=== PATIENT | male | born 1940 | race Caucasian/White ===

== ENCOUNTER 2019-08-13 07:06 | Outpatient (CLI) | payer MEDICARE, OTHER | END 2019-08-13 07:07 | disposition short-term general hospital (02) | LOC: EMS 07:06 | PROVIDERS: ATTEND Surgery | DX: R42 Dizziness and giddiness (principal); R11.2 Nausea with vomiting, unspecified; R61 Generalized hyperhidrosis | CPT/HCPCS: A0425; A0429 ==

== ENCOUNTER 2021-03-13 22:39 | Outpatient (CLI) | payer MEDICARE, OTHER | END 2021-03-13 22:40 | disposition short-term general hospital (02) | LOC: EMS 22:39 | DX: R11.0 Nausea (principal); R61 Generalized hyperhidrosis; Z86.16 Personal history of COVID-19 | CPT/HCPCS: A0425; A0427 ==

== ENCOUNTER 2022-05-25 22:20 | Outpatient (CLI) | payer MEDICARE, OTHER | END 2022-05-25 23:59 | disposition EMS.NT | LOC: EMS 22:20 | DX: R55 Syncope and collapse (principal) ==

== ENCOUNTER 2022-06-16 10:18 | Outpatient (CLI) | payer MEDICARE, OTHER ==
--- NOTE | 2022-06-16 10:11 | SLEEP CARE CONSULTATION ---
Information from patient questionnaire entered by Elisa Pierre. I have reviewed and concur with the information entered by Elisa Pierre. This document represents the service I personally performed and the decisions made by me, Love Haji ARNP. History of Present Illness Service Date and Time: 06/16/2022 0920 Reason for Visit: New patient, Previously diagnosed sleep apnea, sleep apnea on CPAP therapy Chief Complaint: reports: Other (TRANSFER ) Date of Onset: 20+YRS Usual bedtime: 11PM Time it takes to fall asleep: MINS Snores at night: Yes Observed to quit breathing while asleep: Yes Sleeps alone due to snoring: No Number of times waking at night: 2-3 Reasons for waking at night: reports: Bathroom Toss, Turn, or Twitch while sleeping: No Recalls having dreams: Yes Usually gets out of bed at: 0700 Feels refreshed in the morning: Yes Morning headache: No Sleepy or fatigued during the day: Yes Ever fallen asleep while driving: No Takes day naps: Yes Dreams during day naps: No Additional HPI information: BRITT MAST was previously diagnosed to have unknown, AHI unknown, sleep apnea- hypopnea syndrome and comes in today to establish care for CPAP therapy. - Parasomnia Symptoms Ever been unable to move upon waking from sleep: No Walks in sleep: No Talks in sleep: No Ever acted out dreams in sleep: No Ever felt weak in the knees when startled or emotional: No Bothered by creepy, crawly, restless sensations in legs: No Problems with memory or concentration: No CPAP Compliance Data - Data Reviewed with Patient Average duration of nightly device use: 5 hours 32 minutes Compliance rate %: 70 ( days used) Current pressure setting (cmH2O): 6-12 (avg 8.0) Average residual AHI: 5.7 Central apnea: 0.8 Obstructive apnea: 0.3 Hypopnea: 4.6 Average large leak: 35 secs Compliance data discussion: He has a Dreamstation 2. He has been getting supplies from [employer]. He using a nasal cushion mask, [employer]. Subjective Missed days of use due to: reports: other (fall asleep without mask on) Patient concerns: reports: condensation in mask/hose (in mask occaisonally). denies: aerophagia, mask discomfort, air blowing in eyes, mask leak noise, nasal congestion, dry mouth, nose, throat, epistaxis Observed to snore while using device: No Current pressure setting perceived as: comfortable On therapy, patient: reports: other (no difference with or without machine). denies: drowsiness while driving Initial [place] Sleepiness Scale score: 12 (06/01/22) Past Medical History Past Medical History: reports: Hypertension Social History The patient's occupation is a RE. Patient is and lives in [place]. Have you smoked in the past 12 months: No Years of smokin Quit date: 1974 Alcohol use: Yes Alcohol amount and frequency: 1 GLASS A WEEK Caffeine use: Yes Caffeine amount and frequency: 4CUPS A DAY Family History Family history of sleep disordered breathing: Yes Family Hx Sleep Apnea: Father: Snoring, Sleep apnea - Untreated, Sibling: Snoring, Sleep apnea - Treated Allergies and Home Medications Known drug allergies: No Drug allergies reviewed: Yes Home medication list reviewed: Yes (see updated list in EMR) Review of Systems Cardiovascular: reports: high blood pressure, leg or foot swelling Respiratory: denies: shortness of breath Gastrointestinal: denies: heartburn Urinary: reports: frequency Neurological: reports: fainting or unconsciousness. denies: headaches Psychiatric: denies: anxiety, depression Ear/Nose/Throat: reports: nasal congestion, tonsillectomy, wisdom teeth removed Endocrine: reports: increased urination Physical Exam Vital signs obtained and entered by: ELISA Rodriguez MA Blood Pressure: 132/88 (LEFT ARM) Cuff size: regular Heart Rate: 69 O2 Saturation: 97 Height: 5 ft 10 in Weight: 199 lb 3.2 oz Body Mass Index: 28.5 BMI Classification: Overweight Neck circumference: 16.5 Impression and Plan 1. Obstructive Sleep Apnea-Hypopnea Syndrome, unknown, with good treatment compliance and fair apnea control with minimally elevated residual AHI. His 90% average pressure is 8.0 cmH2O. The patients pressure will be changed to autoCPAP 8.5-9 cmH20 for elevation of residual AHI. Patient advised to contact me if pressure change is uncomfortable so that it can be adjusted. Goals for apnea control discussed. We do not have a copy of his last sleep study. We are trying to request that but if unable to get a copy I will have him do a sleep study here to verify diagnosis and severity of sleep apnea. I will follow-up with him in 1 to 2 months to recheck how his pressure is doing or after the sleep study as needed, depending upon timing. Patient's apnea severity and rationale for treatment to reduce apnea, improve sleep quality and reduce cardiovascular and cerebrovascular events was reviewed. I also reviewed the benefit of consistent device use of CPAP for hypertension. 2. Overweight, unspecified. Currently patients BMI is 28.5. Obesity increases the risk of apnea, CPAP pressure requirements and overall health risks especially cardiovascular and diabetes. Thus patient is advised to lose weight. * Change auto CPAP pressure to 8.5-9 cmH2O * Update supplies once we have copy of sleep study or complete new sleep study * Notify me if snoring with mask or feeling that the pressure is too much or too little * Attempt to lose weight * Call this office if any problems using CPAP * Return for follow up in 1-2 months, or sooner if concerns arise Counseling Topics: Spare mask, Weight loss health impact Visit Type: In Office Time Spent with Patient (minutes): 37 Provider Statement: I spent 100% of the Face to Face Visit with the patient with greater than 50% spent counseling the patient and coordination of care.
[2022-06-16 10:19] VITALS: BP 132/88
== END 2022-06-16 10:19 | disposition home or self-care (01) ==
LOC: SC 10:18
PROVIDERS: ATTEND Nurse Practitioner Family
DX: G47.33 Obstructive sleep apnea (adult) (pediatric) (principal); E66.3 Overweight; Z68.28 Body mass index [BMI] 28.0-28.9, adult
CPT/HCPCS: 99203; G0463; 99212

== ENCOUNTER 2023-03-02 10:02 | Outpatient (CLI) | payer MEDICARE, OTHER ==
--- NOTE | 2023-03-02 10:36 | Sleep Patient Instructions ---
Sleep Center Visit Summary - Patient Visit Information Reason for Visit: 9 month followup - Patient Instructions Additional Instructions: You were here for follow up of CPAP therapy. You will be continued on CPAP therapy with pressure at 8.5-9 cmH2O. You were fitted to a Nuance Pro gel nasal pillows mask, medium cushion. I have written for a mask fitting and sent this to [place]. You should follow up with sleep care in 12 months. You may contact us sooner for any questions or concerns. - Clinic Information Contact: [facility] [address] [place] [address] [email or web address] T: [phone]
--- NOTE | 2023-03-02 10:44 | SLEEP CARE CONSULTATION ---
Information from patient questionnaire entered by Elisa Pierre. I have reviewed and concur with the information entered by Elisa Pierre. This document represents the service I personally performed and the decisions made by me, Love Haji ARNP. History of Present Illness Service Date and Time: 03/02/2023 1002 Previous diagnosis: Moderate, Obstructive Sleep Apnea-Hypopnea Syndrome AHI: 21 (in 2018) Reason for follow up: other (9MONTH F/U) Equipment type: CPAP (ANGELIKA DREAM STATION 2) Equipment obtained from: [employer] ([employer] supplies) Mask style: Nasal Backup mask available: Yes Last cushion change: 1 week Prior sleep studies: Yes Year and Where: 2018 HPI additional information: BRITT MAST was diagnosed to have moderate, AHI 21, obstructive sleep apnea- hypopnea syndrome and returned today for CPAP therapy 9 months follow-up. CPAP Compliance Data - Data Reviewed with Patient Average duration of nightly device use: 5 HRS 7 MINS 38 SEC Compliance rate %: 70 (04/28/22-02/14/23; 226/273 days used) Current pressure setting (cmH2O): 8.5-9 Average residual AHI: 2.2 Central apnea: 0.6 Obstructive apnea: 0.3 Hypopnea: 1.3 Average large leak: 38 secs Subjective Missed days of use due to: reports: mask issues (mask noise disturbing 's sleep) Patient concerns: reports: mask leak noise, dry mouth, nose, throat (dry mouth, a little). denies: aerophagia, mask discomfort, air blowing in eyes, condensation in mask/hose, nasal congestion, epistaxis Observed to snore while using device: No Current pressure setting perceived as: comfortable On therapy, patient: reports: sleeping better, awakening more refreshed, being more awake and alert during the day, more rested overall. denies: drowsiness while driving Initial [place] Sleepiness Scale score: 12 (06/01/22) Current [place] Sleepiness Scale score: 17 Allergies and Home Medications Known drug allergies: No Drug allergies reviewed: Yes Home medication list reviewed: Yes (no changes) Allergy and home medication list: Allergies No Known Drug Allergies Allergy (Verified 03/01/23 09:19) Review of Systems Review of systems same as previous: Yes (no changes) Physical Exam Vital signs obtained and entered by: LOVE E, BLOCK ENGRAVER-C Blood Pressure: 154/83 Cuff size: regular (right arm) Heart Rate: 65 O2 Saturation: 97 Height: 5 ft 10 in Weight: 197 lb Body Mass Index: 28.3 BMI Classification: Overweight Impression and Plan 1. Obstructive Sleep Apnea-Hypopnea Syndrome, moderate, with good treatment compliance and good apnea control. On CPAP therapy, the patient has better sleep quality and is more rested overall. He states he has not been using his CPAP in the last week because the mask leak noises are disturbing his . He would like to try a different style from the nasal cushion mask he is using now. He thinks he might like a fullface mask but his suggested a nasal pillows mask. I fit him to a Angelika [employer] Pro gel nasal pillows mask, medium cushion, with a good fit. He felt that was comfortable and may just do what he needs. I will still send a mask refitting prescription to [place] if he should decide to try a fullface mask. They should reach out to him and he voiced understanding. Patient's apnea severity and rationale for treatment to reduce apnea, improve sleep quality and reduce cardiovascular and cerebrovascular events was reviewed. I also reviewed the benefit of consistent device use of CPAP for hypertension. 2. Overweight, unspecified. Currently patients BMI is 28.3. Obesity increases the risk of apnea, CPAP pressure requirements and overall health risks especially cardiovascular and diabetes. Thus patient is advised to lose weight. * Continue auto CPAP pressure at 8.5-9 cmH2O * Mask fitting for nasal pillows or full face mask * Notify me if snoring with mask or feeling that the pressure is too much or too little * Attempt to lose weight * Call this office if any problems using CPAP * Return for follow up in 12 months, or sooner if concerns arise Mask provided: Yes Counseling Topics: Spare mask, Weight loss health impact Prescriptions: Other (mask refitting) Follow up with Sleep Care in: 1 year Visit Type: In Office Time Spent with Patient (minutes): 28 Provider Statement: I spent 100% of the Face to Face Visit with the patient with greater than 50% spent counseling the patient and coordination of care.
[2023-03-02 10:52] VITALS: BP 154/83; O2SAT 97
== END 2023-03-02 10:03 | disposition home or self-care (01) ==
LOC: SC 10:02
PROVIDERS: ATTEND Nurse Practitioner Family
DX: G47.33 Obstructive sleep apnea (adult) (pediatric) (principal); E66.3 Overweight; Z68.28 Body mass index [BMI] 28.0-28.9, adult
CPT/HCPCS: 99213; G0463; 99212